=== PATIENT | female | born 1945 | race Caucasian/White ===

== ENCOUNTER → 2017-04-23 | Outpatient (CLI) | payer OTHER ==
[~2017-04-23] MED LIST: AMLODIPINE BESY10 MG PO; ASPIR 8181 M1 PO; BENAZEPRIL HCL40 MG PO; PRILOSEC20 MG PO; SIMVASTATIN20 MG PO
== END | disposition home or self-care (01) ==
LOC: CDC 12:06
DX: Z01.810 Encounter for preprocedural cardiovascular examination (principal); C50.512 Malignant neoplasm of lower-outer quadrant of left female breast; R94.31 Abnormal electrocardiogram [ECG] [EKG]
CPT/HCPCS: 93000

== ENCOUNTER 2017-05-22 05:28 | Day surgery (SDC) | payer OTHER ==
[~2017-05-22] VITALS: Ht 157.5 cm; Wt 76.6 kg
[~2017-05-22 05:28] MED LIST changes: -BENAZEPRIL HCL40 MG PO; +LOTENSIN20 MG PO
[2017-05-22 06:00] VITALS: BP 121/57
[2017-05-22] MEDS ORDERED: HYDROCODON-ACE1 EAC7 PO (12:13)
[2017-05-22 13:15] VITALS: BP 115/70
[2017-05-22 14:04] VITALS: BP 110/58
== END 2017-05-22 14:08 | disposition home or self-care (01) ==
LOC: SDC 05:28 → NUC 07:00 → SDC 14:08
DX: C50.512 Malignant neoplasm of lower-outer quadrant of left female breast (principal); Z17.0 Estrogen receptor positive status [ER+]; E78.5 Hyperlipidemia, unspecified; I10 Essential (primary) hypertension; I49.3 Ventricular premature depolarization; Z80.3 Family history of malignant neoplasm of breast; Z80.0 Family history of malignant neoplasm of digestive organs; Z87.891 Personal history of nicotine dependence; Z79.82 Long term (current) use of aspirin
CPT/HCPCS: 78195; 78999; 88305; 88307; A9541; J0690; J2250; J2405; S0020